=== PATIENT | female | born 2000 | race Two or more races ===

== ENCOUNTER → 2024-12-10 | Outpatient (CLI) | payer MEDICAID, SELFPAY ==
--- NOTE | 2024-12-10 13:40 | XR_ITS ---
EXAMINATION: Cervical spine, 5 views Technique: Cervical spine AP, AP odontoid, lateral, bilateral obliques, 5 views Exam date and time: December 10, 2024 1409 hours INDICATIONS: Neck pain beginning one month ago. FINDINGS: Reversal normal cervical lordosis No cervical fracture Intact odontoid No neural foraminal stenosis No significant cervical disc narrowing IMPRESSION: No cervical fracture or significant cervical disc narrowing
== END | disposition home or self-care (01) ==
PROVIDERS: PCP Nurse Practitioner Family; Referring Provider Nurse Practitioner Family; Visit Provider Nurse Practitioner Family
DX: M54.2 Cervicalgia (principal)
CPT/HCPCS: 72050

== ENCOUNTER → 2024-12-31 | Outpatient (CLI) | payer MEDICAID, SELFPAY ==
--- NOTE | 2024-12-31 13:02 | XR_ITS ---
Examination: Left elbow 3 views Technique: Elbow AP, oblique, lateral 3 views Exam date and time: December 31, 2024 1343 hours INDICATIONS: Injury to the elbow 4 days ago, elbow pain. FINDINGS: No acute fracture No dislocation IMPRESSION: No acute fracture.
--- NOTE | 2024-12-31 13:02 | XR_ITS ---
Examination: Hand, left 3 views Technique: Hand AP, oblique, lateral 3 views Date and time of exam: December 31, 2024 1343 hours INDICATIONS: Injury to the hand 4 days ago with third fourth and fifth digit pain FINDINGS: No acute fracture. No dislocation No foreign body IMPRESSION: No acute fracture
--- NOTE | 2024-12-31 13:02 | XR_ITS ---
Examination: Fingers, left hand 3 views Technique: AP, oblique, lateral views fingers left hand. Exam date and time: December 31, 2024 1343 hours INDICATIONS: Injury to the hand 4 days ago with finger pain FINDINGS: Adequate bone density No acute fractures No dislocation IMPRESSION: No acute fracture
--- NOTE | 2024-12-31 13:02 | XR_ITS ---
Examination: Wrist, left 3 views Technique: Wrist AP, oblique, lateral 3 views Date and time of exam: December 31, 2024 1343 hours INDICATIONS: Injury to the wrist 4 days ago, wrist pain. FINDINGS: No acute fracture No dislocation No foreign body IMPRESSION: No acute fracture
== END | disposition home or self-care (01) ==
PROVIDERS: PCP Nurse Practitioner Family
DX: S69.92XA Unspecified injury of left wrist, hand and finger(s), initial encounter (principal); S59.902A Unspecified injury of left elbow, initial encounter; X58.XXXA Exposure to other specified factors, initial encounter
CPT/HCPCS: 73080; 73110; 73130; 73140

== ENCOUNTER → 2025-04-08 | Outpatient (CLI) | payer MEDICAID, SELFPAY ==
--- NOTE | 2025-04-08 10:06 | XR_ITS ---
Examination: PA lateral chest 2 views TECHNIQUE: Upright PA lateral chest 2 views. Date and time: April 08, 2025, 10:11 AM INDICATIONS: Left-sided chest pain 10 years. FINDINGS: Normal heart size. Lungs are clear. The osseous structures are intact. IMPRESSION: No active disease.
== END | disposition home or self-care (01) ==
PROVIDERS: PCP Nurse Practitioner Family; Referring Provider Nurse Practitioner Family; Visit Provider Nurse Practitioner Family
DX: R07.81 Pleurodynia (principal)
CPT/HCPCS: 71046

== ENCOUNTER → 2025-06-13 | Outpatient (CLI) | payer MEDICAID, SELFPAY ==
--- NOTE | 2025-06-13 14:00 | XR_ITS ---
Examination: Abdomen sonogram, complete Date and time of exam: June 13, 2025 1350 hours INDICATIONS: Onset left upper abdominal pain beginning one year ago.. Technique: Multiple real-time grayscale transabdominal sonographic images of the abdomen have been obtained. Findings: Normal gallbladder. Normal common bile duct 0.2 cm Pancreatic head 1.5 cm Aorta not enlarged. Liver 16.9 cm fatty infiltration no focal liver lesions. Normal hepatopedal portal venous flow. Patent IVC. Right kidney 13.6 cm cortex 1.3 cm Left kidney 13.4 cm cortex 1.9 cm Mild renal scar formation Spleen 10.4 cm IMPRESSION: Normal gallbladder Mild hepatomegaly fatty infiltration
== END | disposition home or self-care (01) ==
LOC: CDIM 13:34
PROVIDERS: PCP Nurse Practitioner Family; Referring Provider Nurse Practitioner Family; Visit Provider Nurse Practitioner Family
DX: K76.0 Fatty (change of) liver, not elsewhere classified (principal)
CPT/HCPCS: 76700